=== PATIENT | male | born 2000 | race American Indian/Alaskan Native ===

== ENCOUNTER 2019-07-25 10:48 | Emergency (ER) | payer SELFPAY ==
[2019-07-25 10:57] VITALS: BP 144/69
--- NOTE | 2019-07-25 11:18 | Emergency Department Report ---
Chief Complaint: Urogenital-Male Stated Complaint: STD CHECK UP Time Seen by Provider: 07/25/19 11:10 - HPI History of Present Illness: pt is a 18 yo male who presents to the ED with c/o "STD check" pt says he is having dysuria and penile discharge he denies any abd pain, testicular edema, testicular pain, N/V, fever, chills VSS pt is presenting with a non medical emergency at this time pt was referred to the health department and given a list of community resources advised pt to have a full STD panel have partner tested and treated as well - Exam Vital Signs: Vital Signs 07/25/19 10:54 Temperature 98.7 F Pulse Rate 83 Respiratory 19 Rate Blood Pressure 144/69 O2 Sat by Pulse 100 Oximetry MSE screening note: Focused history and physical exam performed. Due to findings the following was ordered: ED Disposition for MSE Clinical Impression: Concern about STD in male without diagnosis Disposition: MED SCREENING EXAM-LEFT Is pt being admited?: No Does the pt Need Aspirin: No Condition: Stable Instructions: Sexually Transmitted Diseases (ED), Safe Sex (ED) Additional Instructions: please follow up with the health department for a full STD panel or one of the clinics listed on the community resources sheet. return to the emergency room for any new or worsening symptoms. Referrals: [facility] Depart [Outside] - 2-3 Days Time of Disposition: 11:13 Print Language: [place]LAND[place]
== END 2019-07-25 11:28 | disposition left against medical advice (07) ==
LOC: ED 10:48
DX: R30.0 Dysuria (principal); R36.9 Urethral discharge, unspecified; Z71.1 Person with feared health complaint in whom no diagnosis is made